=== PATIENT | female | born 2000 | race Two or more races ===

== ENCOUNTER 2018-01-03 02:46 | Emergency (ER) | payer BC ==
[~2018-01-03] VITALS: Ht 172.7 cm; Wt 63.0 kg
[2018-01-03] MEDS ORDERED: BCP (02:51)
[2018-01-03] MEDS ORDERED: PENICILLIN (02:51)
[2018-01-03] MEDS ORDERED: ONDANSETRON ODT 4 MG ONE (03:11)
[2018-01-03] MEDS ORDERED: FAMOTIDINE 20 MG TABLET ONE (03:19)
[2018-01-03] MEDS ORDERED: MAALOX/HYOSCYAMINE/LIDOCAINE 45 ML BTL ONE (03:19)
[2018-01-03] MEDS ORDERED: MAALOX/HYOSCYAMINE/LIDOCAINE 45 ML BTL PO ONE (03:30)
[2018-01-03] MEDS ORDERED: ONDANSETRON ODT 4 MG PO ONE (03:30)
[2018-01-03] MEDS ORDERED: FAMOTIDINE 20 MG TABLET PO ONE (03:30)
[2018-01-03 03:33] LABS: BASOPHILS # (AUTO) 0.04 x10^3/uL (0-0.3); BASOPHILS % (AUTO) 1 % (0-1); EOSINOPHILS # (AUTO) 0.08 x10^3/uL (0-0.8); EOSINOPHILS % (AUTO) 1 % (1-7); LYMPHOCYTES # (AUTO) 1.94 x10^3/uL (1-6.1); LYMPHOCYTES % (AUTO) 21 % (22-44); MD NO; MEAN CORPUSCULAR HEMOGLOBIN 26.6 pg (27.0-34.8); MEAN CORPUSCULAR HGB CONC 33.4 g/dL (32.4-35.8); MEAN CORPUSCULAR VOLUME 79.5 fL (80-100); MEAN PLATELET VOLUME 9.9 fL (7.4-10.4); MONOCYTES # (AUTO) 0.73 x10^3/uL (0-1.4); MONOCYTES % (AUTO) 8 % (2-9); NEUTROPHILS # (AUTO) 6.49 x10^3/uL (1.8-8.0); NEUTROPHILS % (AUTO) 70 % (42-75); PLATELET COUNT 286 x10^3/uL (130-400); RED BLOOD COUNT 4.61 x10^6/uL (3.82-5.3)
[2018-01-03] MEDS ORDERED: DICYCLOMINE 10 MG/ML, 2ML ONE (03:42)
[2018-01-03] MEDS ORDERED: PROMETHAZINE 25 MG/ML, 1ML ONE (03:42)
[2018-01-03 03:47] LABS: ALANINE AMINOTRANSFERASE 22 U/L (12-78); ALBUMIN 3.7 g/dL (3.4-5.0); ANION GAP 8 mmol/L (5-15); CALCIUM 9.2 mg/dL (8.5-10.1); CHLORIDE 106 mmol/L (98-107); CREATININE 0.99 mg/dL (0.55-1.02)
[2018-01-03 03:52] LABS: ALKALINE PHOSPHATASE 79 U/L (45-117); BILIRUBIN,TOTAL 0.5 mg/dL (0.2-1.0)
[2018-01-03] MEDS ORDERED: PROMETHAZINE 25 MG/ML, 1ML IM ONE (04:00)
[2018-01-03] MEDS ORDERED: DICYCLOMINE 10 MG/ML, 2ML IM ONE (04:00)
[2018-01-03] MEDS ORDERED: METOCLOPRAMIDE 5 MG/ML, 2ML ONE (04:24)
[2018-01-03] MEDS ORDERED: FAMOTIDINE 20 MG/2 ML ONE (04:24)
[2018-01-03 04:25] VITALS: BP 137/86
[2018-01-03] MEDS ORDERED: METOCLOPRAMIDE 5 MG/ML, 2ML IVPush ONE (04:30)
[2018-01-03] MEDS ORDERED: FAMOTIDINE 20 MG/2 ML IVP ONE (04:30)
[2018-01-03] MEDS ORDERED: SODIUM CHLORIDE FLUSH 10ML SYR IVF ONE (04:30)
[2018-01-03] MEDS ORDERED: SODIUM CHLORIDE 0.9% 1,000ML IVBOLUS ONE (04:30)
== END 2018-01-03 05:22 | disposition home or self-care (01) ==
LOC: ED 05:10
DX: K25.3 Acute gastric ulcer without hemorrhage or perforation (principal); B96.81 Helicobacter pylori [H. pylori] as the cause of diseases classified elsewhere
CPT/HCPCS: 36415; 80053; 83690; 84703; 85025; 86677; 96361; 96372; 96374; 96375; 99284; J0500; J2550; J2765; J7030; Q0162; S0028